=== PATIENT | male | born 1985 | race Two or more races ===

== ENCOUNTER 2024-07-04 14:04 | Inpatient (IN) | payer MEDICAID, OTHER ==
[~2024-07-04] VITALS: Ht 166.4 cm; Wt 56.6 kg
[2024-07-04 14:20] VITALS: RESP 19; O2SAT 100
--- NOTE | 2024-07-04 14:21 | ED.PDOC ---
History of Present Illness HPI Comments 38-year-old male brought by paramedics because he was having a psychotic episode. He lives in his car with a significant other. Significant other stated that he was having irrational behavior. He did have meth yesterday. Blood pressure on arrival was 88/62 with a heart rate of 134. Denies any symptoms. Unable to get a good history from the patient. History of bipolar disorder. Chief Complaint: Low Blood Pressure Time Seen by MD: 14:07 Reviewed Notes: Nurses Notes, Medications, Allergies Allergies: Coded Allergies: Naproxen (Verified Allergy, Unknown, 07/04/24) Information Source: Emergency Med Personnel Mode of Arrival: EMS Severity: Moderate Timing: Hours Duration: Since onset Past Medical History PAST MEDICAL HISTORY: Denies Surgical History: Denies all surgeries Social History Smoker: Cigarettes Alcohol: Denies ETOH Use Drugs: Methamphetamine Constitutional: denies: chills, diaphoresis, fatigue, fever, malaise, sweats, weakness, others EENTM: denies: blurred vision, double vision, ear bleeding, ear discharge, ear drainage, ear pain, ear ringing, eye pain, eye redness, hearing loss, mouth pain, mouth swelling, nasal discharge, nose bleeding, nose congestion, nose pain, photophobia, tearing, throat pain, throat swelling, voice changes, others Respiratory: denies: cough, hemoptysis, orthopnea, SOB at rest, shortness of breath, SOB with excertion, stridor, wheezing, others Cardiovascular: denies: chest pain, dizzy spells, diaphoresis, Dyspnea on exertion, edema, irregular heart beat, left arm pain, lightheadedness, palpitations, PND, syncope, others Gastrointestinal: denies: abdomen distended, abdominal pain, blood streaked bowels, constipated, diarrhea, dysphagia, difficulty swallowing, hematemesis, melena, nausea, poor appetite, poor fluid intake, rectal bleeding, rectal pain, vomiting, others Genitourinary: denies: burning, dysuria, flank pain, frequency, hematuria, incontinence, penile discharge, penile sore, pain, testicle pain, testicle swelling, urgency, others Neurological: denies: dizziness, fainting, headache, left sided numbness, left sided weakness, numbness, paresthesia, pre-existing deficit, right sided numbness, right sided weakness, seizure, speech problems, tingling, tremors, weakness, others Musculoskeletal: denies: back pain, gout, joint pain, joint swelling, muscle pain, muscle stiffness, neck pain, others Integumetry: denies: bruises, change in color, change in hair/nails, dryness, laceration, lesions, lumps, rash, wounds, others Allergic/Immunocompromised: denies: Difficulty Healing, Frequent Infections, Hives, Itching, others Hematologic/Lymphatic: denies: anemia, blood clots, easy bleeding, easy bruising, swollen glands, others Endocrine: denies: excessive hunger, excessive sweating, excessive thirst, excessive urination, flushing, intolerance to cold, intolerance to heat, unexplained weight gain, unexplained weight loss, others Psychiatric: reports: anxiety, bipolar disorder Physical Exam General Appearance: Moderate Distress HEENT: Normal ENT Inspection, Pharynx Normal, TMs Normal Neck: Full Range of Motion, Non-Tender, Normal, Normal Inspection Respiratory: Chest Non-Tender, Lungs Clear, No Accessory Muscle Use, No Respiratory Distress, Normal Breath Sounds Cardiovascular: No Edema, No JVD, No Murmur, No Gallop, Normal Peripheral Pulses, Tachycardia Breast Exam: Deferred Gastrointestinal: No Organomegaly, Non Tender, No Pulsatile Mass, Normal Bowel Sounds, Soft Genitalia: Deferred Pelvic: Deferred Rectal: Deferred Extremities: No calf tenderness, No pedal edema Musculoskeletal : Apperance: Normal Neurologic: Alert Cerebellar Function: NOT DONE Reflexes: NOT DONE Skin: Dry, Normal Color, Warm Peripheral Pulses: 3+ Radial (R), 3+ Radial (L) Lymphatic: No Adenopathy Was a procedure done? Was a procedure done?: No Differential Dx Considerations may include: Anemia Electrolyte imbalance X-Ray, Labs, Meds, VS Vital Signs Date Time Temp Pulse Resp B/P (MAP) Pulse Ox O2 Delivery O2 Flow Rate FiO2 07/04/24 16:00 101.9 120 14 94/43 (60) 100 101.9 07/04/24 14:35 102.3 127 17 93/45 (61) 100 102.3 07/04/24 14:30 102.3 127 17 102.3 07/04/24 14:20 19 100 Room Air* 0 21 07/04/24 14:11 100.6 134 18 89/45 (60) 99 100.6 Lab Test 07/04/24 14:35 Range/Units Troponin I High Sensitivity < 3 L </=54 ng/L Current Medications Medications (Trade) Dose Ordered Sig/Jacqui Route Start Time Stop Time Status Last Admin Sodium Chloride 1,000 ml @ 1,000 mls/hr Q1H ONCE IV 07/04/24 14:15 07/04/24 15:14 DC 07/04/24 14:44 Sodium Chloride 1,000 ml @ 150 mls/hr Q6H40M ONCE IV 07/04/24 14:15 07/04/24 20:54 07/04/24 15:43 Sodium Chloride 1,000 ml @ 1,000 mls/hr Q1H ONCE IV 07/04/24 16:15 07/04/24 17:14 DC 07/04/24 16:15 Patient alert. Does not answering questions at times. Very difficult to get history of the patient. Tachycardic. Hypotensive. Establish intravenous access. Was given fluids. Possible sepsis. Unknown about his eating habits. Uses drugs. 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 Psychiatric evaluation. Continue monitoring. Cardiac marker within normal limits. He does have fever. Possible pneumonitis. Was given Rocephin. Was given azithromycin. Time of 1ST Reevaluation: 14:18 Reevaluation 1ST: Unchanged Patient Education/Counseling: Diagnosis, Treatment, Prognosis, Need For Follow Up Family Education/Counseling: No Family Present Departure 1 Departure Time of Disposition: 14:20 Impression: Primary Impression: Metabolic encephalopathy Additional Impressions: Pneumonitis Sepsis Qualified Codes: A41.9 - Sepsis, unspecified organism Disposition: ADMITTED INPATIENT Admit to: Med Surg Condition: Guarded Critical Care Note Critical Care Time?: Yes (90 min-critical care time only) Critical care comment: Sepsis protocol. Stability Stability form required: No Heart Score Heart Score: Heart Score Response (Comments) Value History Slightly Suspicious 0 EKG Normal 0 Age <45 0 Risk Factors 1 or 2 risk factors 1 Troponin Normal limit 0 Total 1 HITESH CURIEL MD July 04, 2024 14:21
[2024-07-04] MEDS: SODIUM CHLORIDE 0.9% 1,000 ML IV ONE ×3 (14:44→16:15)
[2024-07-04 17:33] LABS: Basophils # (auto) 0 10 ^3/uL (0-0.2); White Blood Cell 8.1 10^3/uL (4.4-10.8)
[2024-07-04 17:34] LABS: Potassium 3.8 mmol/L (3.5-5.1); Sodium 138 mmol/L (136-145)
[2024-07-04 17:35] LABS: Anion Gap 14 (5-15); Basophils % (auto) 0.4 % (0.0-2.0); Calcium 8.7 mg/dL (8.7-10.4); Eosinophils # (auto) 0 10 ^3/uL (0-0.8); Eosinophils % (auto) 0.1 % (0.0-7.0); Hemoglobin 9.1 g/dL (13.5-17.5); Lymphocytes % (auto) 12.9 % (10.0-50.0); Mean Corpuscular Hemoglobin 29.6 pg (28.0-32.0); Mean Corpuscular Hgb Conc. 33.6 g/dL (32.0-36.0); Mean Corpuscular Volume 88.2 fL (80.0-100.0); Monocytes # (auto) 0.9 10 ^3/uL (0-1.3); Monocytes % (auto) 10.7 % (0.0-12.0); Neutrophils # (auto) 6.2 10 ^3/uL (1.6-8.6); Neutrophils % (auto) 75.9 % (37.0-80.0); Platelet Count (auto) 462 10^3/uL (140-450); Red Blood Cells 3.06 10^6/uL (4.5-5.90); Red Cell Distribution Width 15.6 % (11.8-14.3)
[2024-07-04 17:40] LABS: BUN/Creatinine Ratio 14.1 (10.0-20.0); Glucose 102 mg/dL (74-106)
[2024-07-04 17:45] LABS: Blood Urea Nitrogen 24 mg/dL (9-23); Carbon Dioxide 16 mmol/L (20-31); Chloride 108 mmol/L (98-107)
[2024-07-04] MEDS: cefTRIAXone 1GM/50ML D5W 50 ML IV ONE (17:48)
[2024-07-04] MEDS: AZITHROMYCIN 500MG/ 250ML 250 ML IV ONE (18:00)
[2024-07-04 18:56] LABS: Lactic Acid w/Reflex 2.6 mmol/L (0.4-2.0)
[2024-07-04 19:30] VITALS: PULSE 118; RESP 19; O2SAT 100
[2024-07-04] MEDS ORDERED: DOCUSATE SOD 100 MG CAP PO PRN (20:30)
[2024-07-04] MEDS ORDERED: ACETAMINOPHEN 325 MG TAB PO PRN (20:30)
[2024-07-04] MEDS ORDERED: HYDROcodone-ACET 5/325MG TAB PO PRN (20:30)
[2024-07-04] MEDS ORDERED: ONDANSETRON HCL 4 MG/2 ML VIAL IV PRN (20:30)
--- NOTE | 2024-07-04 20:52 | DVH ---
CT HEAD WITHOUT CONTRAST INDICATION: altered COMPARISON: None TECHNIQUE: CT of the head without intravenous contrast. RADIATION DOSE: CTDIvol: 52.69 mGy, DLP: 844.79 mGy*cm FINDINGS: There is no evidence of intracranial hemorrhage, infarct, extra-axial collection, mass effect, midli ne shift, herniation or hydrocephalus. The ventricles, sulci and cisterns are normal. The mack-white differentiation is intact. Considerable mucosal thickening with complete opacification of right maxillary sinus and to lesser ex tent left maxillary sinus, mucosal thickening in bilateral ethmoid sinuses and right frontal sinus, m inimal mucosal thickening in sphenoid sinuses. Mastoid air cells and middle ear cavities are clear. S oft tissues and osseous structures are unremarkable. IMPRESSION: No intracranial abnormality identified.
--- NOTE | 2024-07-04 20:54 | DVH ---
CHEST RADIOGRAPH Indication: sob Technique: Single frontal view of the chest was obtained COMPARISON: None FINDINGS: Lines and Tubes: None Lungs: Clear Pleura: No effusion. No pneumothorax. Cardiomediastinal contours: Unremarkable IMPRESSION: No definite abnormality demonstrated.
[2024-07-04] MEDS: SODIUM CHLORIDE 0.9% 1,000 ML IV SCH (21:00)
[2024-07-04] MEDS ORDERED: NITROGLYCERIN 0.4 MG SL TAB SL PRN (21:15)
[2024-07-04] MEDS ORDERED: MORPHINE SULFATE INJ 2 MG/ml SYRG IV PRN (21:15)
--- NOTE | 2024-07-04 21:15 | DVHHP2 ---
History of Present Illness Reason for Visit: Sepsis, unspecified organism History of Present Illness The patient is a 38-year-old male who denies past medical history presented to [facility] ED for evaluation of psychotic episode. Patient lives in the car with a significant other. His partner reports he was having irrational behavior. Patient was seen and evaluated in the ED, laboratory data shows WBC 8.1, hemoglobin 9.1, hematocrit 27.0, platelets 462, sodium 138, potassium 3.8, BUN 24, creatinine 1.70, glucose 102, lactic acid 2.6, troponin < 3, blood pressure 89/45 trending up to 94/43, heart rate 134 trending down to 112, temperature 102.3� F trending down to 98.3� F. the patient was started on IV antibiotic regimen Rocephin, please see medication orders section in the computer. On my assessment, patient denied chest pain, no headache, no dizziness, no diaphoresis, no shortness of breath, no nausea, no vomiting, no fever at this moment, no chills. Patient was admitted for further evaluation and medical management. Past Medical History Bipolar disorder Past Surgical History Denies all surgeries Family History Reviewed, noncontributory to the management of this case. Past Social History The patient lives at home, smokes cigarettes, denies alcohol use, uses methamphetamine. Review of Systems Constitutional: Yes: Fever, Weakness; No: Chills, Sweats, Malaise, Other Eyes: No: Pain, Vision change, Conjunctivae inflammation, Eyelid inflammation, Other, Redness ENT: No: Ear pain, Ear discharge, Nose pain, Nose discharge, Nose congestion, Mouth pain, Mouth swelling, Throat pain, Throat swelling, Other Respiratory: No: Cough, Dry, Shortness of breath, SOB with excertion, Wheezing, Hemoptysis, Pleuritic Pain, Sputum, Wheezing, Other Cardiovascular: No: Chest Pain, Palpitations, Orthopnea, Paroxysmal Noc. Dyspnea, Edema, Lt Headedness, Other Gastrointestinal: No: Nausea, Vomiting, Abdominal Pain, Diarrhea, Constipation, Melena, Hematochezia, Other Genitourinary: No Dysuria, No Frequency, No Incontinence, No Hematuria, No Retention, No Other Musculoskeletal: No: other, neck pain, shoulder pain, arm pain, back pain, hand pain, leg pain, foot pain Skin: No: Rash, Lesions, Jaundice, Bruising, Other Neurological: No: Weakness, Numbness, Incoordination, Change in speech, Confusion, Seizures, Other Allergies: Coded Allergies: Naproxen (Verified Allergy, Unknown, 07/04/24) Medications Current Medications Medications Dose Ordered Sig/Jacqui Route Start Time Stop Time Status Last Admin Dose Admin Ceftriaxone Sodium 50 ml @ 100 mls/hr DAILY@09 IV 07/05/24 09:00 Azithromycin 250 ml @ 125 mls/hr DAILY IV 07/05/24 10:00 Sodium Chloride 1,000 ml @ 120 mls/hr Q8H20M IV 07/04/24 20:30 07/04/24 21:00 120 MLS/HR Acetaminophen/ Hydrocodone Bitart 1 tab Q4HP PRN PO 07/04/24 20:30 Ondansetron HCl 4 mg Q4HP PRN IV 07/04/24 20:30 Docusate Sodium 100 mg BIDPRN PRN PO 07/04/24 20:30 Acetaminophen 650 mg Q6HP PRN PO 07/04/24 20:30 Nitroglycerin 0.4 mg Q5MINP PRN SL 07/04/24 21:15 UNV Morphine Sulfate 2 mg Q30M PRN IV 07/04/24 21:15 UNV Exam Vital Signs Vital Signs Date Time Temp Pulse Resp B/P (MAP) Pulse Ox O2 Delivery O2 Flow Rate FiO2 07/04/24 17:00 113 14 92/40 (57) 98 07/04/24 16:00 101.9 101.9 07/04/24 14:20 Room Air* 0 21 General Appearance: Alert, Oriented X3, Cooperative, No acute distress HEENT: Atraumatic, PERRLA, EOMI, Mucous membr. moist/pink Respiratory: Normal air movement Cardiovascular: Regular rate, Normal S1, Normal S2, No murmurs Abdominal: Normal bowel sounds, Soft, No tenderness, No hepatospenomegaly, No masses Extremities: No clubbing, No cyanosis, No edema, Normal pulses, No tenderness/swelling Skin: No rashes, No breakdown, No significant lesion Neuro: Normal speech, Normal tone, Sensation intact, Cranial nerves 3-12 NL, Reflexes 2+, Other (Generalized weakness) Psych/Mental Status: Mental status NL, Mood NL, Other (Anxiety, bipolar diso rder.) Labs/Xrays Labs Test 07/04/24 20:08 07/04/24 19:56 07/04/24 14:35 Range/Units POC Glucose 81 70-106 mg/dl Lactic Acid Level 2.5 *H 0.4-2.0 mmol/L White Blood Count 8.1 4.4-10.8 10^3/uL Red Blood Count 3.06 L 4.5-5.90 10^6/uL Hemoglobin 9.1 L 13.5-17.5 g/dL Hematocrit 27.0 L 41.0-53.0 % Mean Corpuscular Volume 88.2 80.0-100.0 fL Mean Corpuscular Hemoglobin 29.6 28.0-32.0 pg Mean Corpuscular Hemoglobin Concent 33.6 32.0-36.0 g/dL Red Cell Distribution Width 15.6 H 11.8-14.3 % Platelet Count 462 H 140-450 10^3/uL Mean Platelet Volume 7.7 6.9-10.8 fL Neutrophils (%) (Auto) 75.9 37.0-80.0 % Lymphocytes (%) (Auto) 12.9 10.0-50.0 % Monocytes (%) (Auto) 10.7 0.0-12.0 % Eosinophils (%) (Auto) 0.1 0.0-7.0 % Basophils (%) (Auto) 0.4 0.0-2.0 % Neutrophils # (Auto) 6.2 1.6-8.6 10 ^3/uL Lymphocytes # (Auto) 1.0 0.4-5.4 10 ^3/uL Monocytes # (Auto) 0.9 0-1.3 10 ^3/uL Eosinophils # (Auto) 0 0-0.8 10 ^3/uL Basophils # (Auto) 0 0-0.2 10 ^3/uL Nucleated Red Blood Cells 0.0 % Sodium Level 138 136-145 mmol/L Potassium Level 3.8 3.5-5.1 mmol/L Chloride Level 108 H 98-107 mmol/L Carbon Dioxide Level 16 L 20-31 mmol/L Anion Gap 14 5-15 Blood Urea Nitrogen 24 H 9-23 mg/dL Creatinine 1.70 H 0.700-1.30 mg/dL Glomerular Filtration Rate Calc 52 >90 mL/min BUN/Creatinine Ratio 14.1 10.0-20.0 Serum Glucose 102 74-106 mg/dL Calcium Level 8.7 8.7-10.4 mg/dL Troponin I High Sensitivity < 3 L </=54 ng/L PATIENT: SEAN JACK ACCT: [id number] UNIT: [id number] : 1985 LOC: ER ROOM / BED: / AGE / SEX: 38 / M ADM STATUS: REG ER SERVICE 1723 ORDERING PHYSICIAN: HITESH CURIEL MD PROCEDURE(s): ABPL - CT AB PEL WO CON-NO ORAL OR IV REASON: colitis ORDER NUMBER(s): [id number], ACCESSION NUMBER(s): [id number] Exam: CT CT AB PEL WO CON-NO ORAL OR IV History: colitis Comparison Study: None TECHNIQUE: Multidetector CT of the abdomen was performed from lung bases to pubic symphysis. Imaging was performed without IV contrast. Axial, coronal and sagittal multiplanar reformats were obtained from the axial data set by the technologist. Radiation Dose Information: CT Dose: CTDI volume is 5.31 mGy. Dose-length product is 291.7 mGy*cm FINDINGS: Evaluation of solid organs is limited due to lack of intravenous contrast use. Findings: Lung Bases: No acute or significant lung base finding. Normal heart size. No pleural or pericardial effusion. Liver: The liver is normal in size. No focal lesions. Gallbladder and Biliary Tree: Unremarkable Spleen: Unremarkable Pancreas: The pancreas is grossly normal in appearance. Adrenal Glands: Unremarkable Kidneys: 4 mm nonobstructing calculus left kidney. Bladder: Grossly unremarkable for degree of distention. Bowel: The stomach is grossly normal in appearance. Small bowel and colon are normal in caliber and distribution. Artifact from bowel motion.: Measures between 4 and 5 cm in diameter. The appendix is not visualized; however, no secondary findings of acute appendicitis identified. Ascites: Absent Lymphadenopathy: No mesenteric, retroperitoneal or periportal lymphadenopathy. Abdominal Wall and Mesentery: Unremarkable. Vasculature: The visualized abdominal aorta is normal in size and caliber. E valuation of abdominal and pelvic vessels is limited due to lack of intravenous contrast. Pelvic Organs: Unremarkable Musculoskeletal: No aggressive focal bony lesions, acute fractures or dislocation. Soft tissues: Unremarkable IMPRESSION: 1. No abnormally dilated small bowel. Colon is within normal limits and measures between 4 and 5 cm. 2. No abnormally dilated small bowel. 3. There is a nonobstructing 4-5 mm calculus in the lower pole of the left kidney. ORDERING PHYSICIAN: HITESH CURIEL MD PROCEDURE(s): CXRP - CHEST PORTABLE REASON: sob ORDER NUMBER(s): [id number], ACCESSION NUMBER(s): [id number] CHEST RADIOGRAPH Indication: sob Technique: Single frontal view of the chest was obtained COMPARISON: None FINDINGS: Lines and Tubes: None Lungs: Clear Pleura: No effusion. No pneumothorax. Cardiomediastinal contours: Unremarkable IMPRESSION: No definite abnormality demonstrated. ORDERING PHYSICIAN: HITESH CURIEL MD PROCEDURE(s): HWOCT - HEAD WITHOUT CONTRAST REASON: altered ORDER NUMBER(s): [id number], ACCESSION NUMBER(s): [id number] CT HEAD WITHOUT CONTRAST INDICATION: altered COMPARISON: None TECHNIQUE: CT of the head without intravenous contrast. RADIATION DOSE: CTDIvol: 52.69 mGy, DLP: 844.79 mGy*cm FINDINGS: There is no evidence of intracranial hemorrhage, infarct, extra-axial collection, mass effect, midline shift, herniation or hydrocephalus. The ventricles, sulci and cisterns are normal. The mack-white differentiation is intact. Considerable mucosal thickening with complete opacification of right maxillary sinus and to lesser extent left maxillary sinus, mucosal thickening in bilateral ethmoid sinuses and right frontal sinus, minimal mucosal thickening in sphenoid sinuses. Mastoid air cells and middle ear cavities are clear. Soft tissues and osseous structures are unremarkable. IMPRESSION: No intracranial abnormality identified. Assessment/Plan Assessment/Plan Metabolic encephalopathy Pneumonitis Acute renal injury Sepsis, unspecified organism Plan 1. Admit to telemetry unit 2. Breathing treatment 3. Pain control management 4. IV antibiotic management 5. Management of fluids and electrolytes 6. Consultation for nephrology 7. Diagnostic test chest x-ray 8. DVT prophylaxis-on SCDs 9. Repeat labs CBC, CMP in a.m. 10. Home medication reviewed and reconciled 11. Continue with current medical management 12. Treatment plan discussed with patient and RN. Patient verbalized understanding. Plan discussed with: Patient, Other (RN) My Orders Orders - APOLINAR SANZ DNP Procedure Category Date Status Time Ceftriaxone 1gm/50ml PHA 07/05/24 In Process D5w (Rocephin) 09:00 Azithromycin 500mg/ PHA 07/05/24 In Process 250ml (Zithromax 50 10:00 Allergies HANNAH 07/04/24 In Process 20:24 Code Status CODE 07/04/24 Transmitted 20:24 Sodium Chloride 0.9% PHA 07/04/24 In Process 20:30 Oxygen Per Hour RT 07/04/24 Transmitted 20:24 Hydrocodone-Acet PHA 07/04/24 In Process 5/325mg Tab ([place] 20:30 Ondansetron Hcl PHA 07/04/24 In Process (Zofran) 20:30 Docusate Sodium PHA 07/04/24 In Process Capsule (Colace 20:30 Fall Risk Precautions HANNAH 07/04/[address] 20:24 Complete Blood Count LAB 07/05/24 Verified 04:00 Comprehensive LAB 07/05/24 Verified Metabolic Panel 04:00 Cardiac DIET 07/05/24 Transmitted Diet-2gna,Lofat,Lochol Breakfast Condition: Serious HANNAH 07/04/24 In Process 20:24 Acetaminophen Tablet PHA 07/04/24 In Process (Tylenol Tablet) 20:30 Maintain Bed Rest HANNAH 07/04/24 In Process 20:24 Sequential HANNAH 07/04/24 In Process Compression Device * Cardiology Consult CONS 07/04/24 Transmitted 20:24 Admit ADMIT 07/04/24 Transmitted 21:13 Nitroglycerin PHA 07/04/24 Logged Sublingual (Ntrostat 21:15 Morphine Sulfate PHA 07/04/24 Logged Injection 21:15 Notify Of Changes HANNAH 07/04/24 In Process From Base 21:13 Project Program Manager For HANNAH 07/04/24 In Process 24 Hours 21:13 Emergency Dysrhythmia HANNAH 07/04/24 In Process Protocol 21:13 Rhythm Strips Once HANNAH 07/04/24 In Process Every Shift 21:13 Oxygen By Nasal RT 07/04/24 Transmitted Cannula 21:13 Problem List: (1) Metabolic encephalopathy (2) Pneumonitis (3) Acute renal injury (4) Sepsis, unspecified organism Date of Service: July 04, 2024 Billing Provider: APOLINAR SANZ DNP Common Visit Codes: 54388-IYRTSAE INP/OBS CARE (HIGH) APOLINAR SANZ DNP July 04, 2024 21:15
--- NOTE | 2024-07-04 21:27 | DVH ---
Exam: CT CT AB PEL WO CON-NO ORAL OR IV History: colitis Comparison Study: None TECHNIQUE: Multidetector CT of the abdomen was performed from lung bases to pubic symphysis. Imaging was performed without IV contrast. Axial, coronal and sagittal multiplanar reformats were obtained fr om the axial data set by the technologist. Radiation Dose Information: CT Dose: CTDI volume is 5.31 mGy. Dose-length product is 291.7 mGy*cm FINDINGS: Evaluation of solid organs is limited due to lack of intravenous contrast use. Findings: Lung Bases: No acute or significant lung base finding. Normal heart size. No pleural or pericardial effusion. Liver: The liver is normal in size. No focal lesions. Gallbladder and Biliary Tree: Unremarkable Spleen: Unremarkable Pancreas: The pancreas is grossly normal in appearance. Adrenal Glands: Unremarkable Kidneys: 4 mm nonobstructing calculus left kidney. Bladder: Grossly unremarkable for degree of distention. Bowel: The stomach is grossly normal in appearance. Small bowel and colon are normal in caliber and d istribution. Artifact from bowel motion.: Measures between 4 and 5 cm in diameter. The appendix is n ot visualized; however, no secondary findings of acute appendicitis identified. Ascites: Absent Lymphadenopathy: No mesenteric, retroperitoneal or periportal lymphadenopathy. Abdominal Wall and Mesentery: Unremarkable. Vasculature: The visualized abdominal aorta is normal in size and caliber. Evaluation of abdominal a nd pelvic vessels is limited due to lack of intravenous contrast. Pelvic Organs: Unremarkable Musculoskeletal: No aggressive focal bony lesions, acute fractures or dislocation. Soft tissues: Unremarkable IMPRESSION: 1. No abnormally dilated small bowel. Colon is within normal limits and measures between 4 and 5 cm. 2. No abnormally dilated small bowel. 3. There is a nonobstructing 4-5 mm calculus in the lower pole of the left kidney. 4. Radiation optimization: All CT scans at this facility use at least one of these dose optimization te chniques: automated exposure control mA and/or kV adjustment per patient size (includes targeted exa ms where dose is matched to clinical indication) or iterative reconstruction. HS:Y
[2024-07-05 01:16] LABS: Urine Bacteria FEW /hpf (None Seen); Urine Blood TRACE /uL (Negative); Urine Clarity Clear (Clear); Urine Color Light-Yellow (Yellow); Urine Mucus FEW (None Seen); Urine Protein, UAD TRACE (Negative); Urine Specific Gravity 1.015 (1.001-1.035); Urine Squamous Epithelial Cell None Seen /hpf (<5); Urine Urobilinogen Normal (Negative); Urine WBC 1 /HPF (0-3); Urine pH 5.5 (5.0-9.0)
[2024-07-05 01:59] LABS: Barbiturate Scree,Urine Neg (NEGATIVE); Opiate Scree,Urine Neg (NEGATIVE); Phencyclidine Screen, Urine Neg (NEGATIVE)
[2024-07-05 02:00] LABS: Amphetamine Screen, Urine Pos (NEGATIVE); Benzodiazephine Screen, Urine Neg (NEGATIVE); Cannabinoid Screen, Urine Neg (NEGATIVE); Cocaine Screen, Urine Neg (NEGATIVE)
[2024-07-05 03:51] LABS: Basophils # (auto) 0 10 ^3/uL (0-0.2); Eosinophils # (auto) 0 10 ^3/uL (0-0.8); Hematocrit 23.9 % (41.0-53.0); Monocytes # (auto) 1.1 10 ^3/uL (0-1.3); Neutrophils # (auto) 4.6 10 ^3/uL (1.6-8.6)
[2024-07-05 03:54] LABS: Basophils % (auto) 0.5 % (0.0-2.0); Eosinophils % (auto) 0.1 % (0.0-7.0); Lymphocytes # (auto) 1.7 10 ^3/uL (0.4-5.4); Lymphocytes % (auto) 22.8 % (10.0-50.0); Mean Corpuscular Hemoglobin 28.8 pg (28.0-32.0); Mean Corpuscular Hgb Conc. 33.6 g/dL (32.0-36.0); Mean Corpuscular Volume 85.8 fL (80.0-100.0); Monocytes % (auto) 15.1 % (0.0-12.0); Neutrophils % (auto) 61.5 % (37.0-80.0); Nucleated Red Blood Cells % 0.1 %; Platelet Count (auto) 399 10^3/uL (140-450); Red Blood Cells 2.78 10^6/uL (4.5-5.90); Red Cell Distribution Width 15.4 % (11.8-14.3); White Blood Cell 7.5 10^3/uL (4.4-10.8)
[2024-07-05 04:06] LABS: Alanine Aminotransferase 13 U/L (7-40); Albumin 2.9 g/dL (3.2-4.8); Alkaline Phosphatase 55 U/L (46-116); Anion Gap 10 (5-15); Aspartate Aminotransferase 20 U/L (13-40); BUN/Creatinine Ratio 15.5 (10.0-20.0); Bilirubin, Total 0.3 mg/dL (0.2-1.0); Blood Urea Nitrogen 18 mg/dL (9-23); Calcium 7.1 mg/dL (8.7-10.4); Carbon Dioxide 18 mmol/L (20-31); Chloride 112 mmol/L (98-107); Glucose 98 mg/dL (74-106); Potassium 3.1 mmol/L (3.5-5.1); Sodium 140 mmol/L (136-145); Total Protein 6.4 g/dL (5.7-8.2)
[2024-07-05] MEDS: POTASSIUM CHL 20 Meq TABLET PO ONE (04:57)
[2024-07-05 09:00] VITALS: PULSE 77; RESP 12; O2SAT 100
[2024-07-05] MEDS: cefTRIAXone 1GM/50ML D5W 50 ML IV SCH (09:40)
[2024-07-05] MEDS: AZITHROMYCIN 500MG/ 250ML 250 ML IV SCH (11:28)
[2024-07-05] MEDS: SOD CHL 0.9%/ KCL 40MEQ 1,000 ML IV ONE (12:06)
[2024-07-05] MEDS: MULTIPLE VITAMIN TAB PO ONE (12:10)
--- NOTE | 2024-07-05 12:40 | DVHPN2 ---
Subjective Patient denies any symptoms. Reviewed: Care Plan, H&P, Labs, Medications, Previous Orders Changes from previous H/P or p: No Changes General: Per HPI Eyes: No Pain, No Vision change, No Conjunctivae inflammation, No Eyelid inflammation, No Other, No Redness ENT: No Ear pain, No Ear discharge, No Nose pain, No Nose discharge, No Nose congestion, No Mouth pain, No Mouth swelling, No Throat pain, No Throat swelling, No Other Cardiovascular: No Chest Pain, No Palpitations, No Orthopnea, No Paroxysmal Noc. Dyspnea, No Edema, No Lt Headedness, No Other Respiratory: No Cough, No Dry, No Shortness of breath, No SOB with excertion, No Wheezing, No Hemoptysis, No Pleuritic Pain, No Sputum, No Other Gastrointestinal: No Nausea, No Vomiting, No Abdominal Pain, No Diarrhea, No Constipation, No Melena, No Hematochezia, No Other Genitourinary: No Dysuria, No Frequency, No Incontinence, No Hematuria, No Retention, No Other Musculoskeletal: No other, No neck pain, No shoulder pain, No arm pain, No back pain, No hand pain, No leg pain, No foot pain Skin: No Rash, No Lesions, No Jaundice, No Bruising, No Other Objective Vitals Vital Signs Date Time Temp Pulse Resp B/P (MAP) Pulse Ox O2 Delivery O2 Flow Rate FiO2 07/05/24 12:00 75 19 101/67 (78) 98 07/05/24 09:00 Room Air* 0 21 07/05/24 08:00 98.2 98.2 Intake/Output Intake and Output 07/05/24 07:00 Intake Total 4420 ml Output Total 300 ml Balance 4120 ml Intake IV Total 4420 ml Output Urine Total 300 ml General Appearance: Alert, Oriented X3, Cooperative, No acute distress HEENT: Atraumatic, PERRLA Cardiovascular: Normal S1, Normal S2 Musculoskeletal: Normal sensory function, Normal motor function Skin: Dry, Intact Psych/Mental Status: Mental status NL, Mood NL Medications Current Medications Medications Dose Ordered Sig/Jacqui Route Start Time Stop Time Status Last Admin Dose Admin Ceftriaxone Sodium 50 ml @ 100 mls/hr DAILY@09 IV 07/05/24 09:00 07/05/24 09:40 100 MLS/HR Azithromycin 250 ml @ 125 mls/hr DAILY IV 07/05/24 10:00 07/05/24 11:28 125 MLS/HR Acetaminophen/ Hydrocodone Bitart 1 tab Q4HP PRN PO 07/04/24 20:30 Ondansetron HCl 4 mg Q4HP PRN IV 07/04/24 20:30 Docusate Sodium 100 mg BIDPRN PRN PO 07/04/24 20:30 Acetaminophen 650 mg Q6HP PRN PO 07/04/24 20:30 Nitroglycerin 0.4 mg Q5MINP PRN SL 07/04/24 21:15 Morphine Sulfate 2 mg Q30M PRN IV 07/04/24 21:15 Multivitamins 1 tab DAILY PO 07/06/24 10:00 Laboratory Results Laboratory Tests 07/05/24 03:32 Chemistry Test 07/04/24 14:35 07/05/24 03:32 Calcium Level 8.7 mg/dL (8.7-10.4) 7.1 mg/dL (8.7-10.4) L Albumin 2.9 g/dL (3.2-4.8) L Total Protein 6.4 g/dL (5.7-8.2) LFT Test 07/05/24 03:32 Alanine Aminotransferase (ALT) 13 U/L (7-40) Alkaline Phosphatase 55 U/L (46-116) Aspartate Amino Transferase (AST) 20 U/L (13-40) Total Bilirubin 0.3 mg/dL (0.2-1.0) Urinalysis Test 07/05/24 00:58 Urine Color Light-yellow (Yellow) Urine Clarity Clear (Clear) Urine pH 5.5 (5.0-9.0) Urine Specific [place] 1.015 (1.001-1.035) Urine Protein Trace (Negative) H Urine Ketones Trace (Negative) Urine Blood Trace /uL (Negative) H Urine Nitrite Negative (Negative) Urine Bilirubin Negative (Negative) Urine Urobilinogen Normal mg/dL (Negative) Urine Leukocyte Esterase Negative /uL (Negative) Urine RBC None seen /hpf (0 - 3) Urine Microscopic WBC 1 /HPF (0-3) Urine Squamous Epithelial Cells None seen /hpf (<5) Urine Bacteria Few /hpf (None Seen) H Urine Mucus Few (None Seen) Urine Glucose Normal mg/dL (Normal) Labs and/or images reviewed: Labs reviewed by me, Image(s) reviewed by me Assessment/Plan Assessment/Plan Impression: -toxic metabolic encephalopathy -lactic acidosis -amphetamine abuse -sirs without organ dysfunction -hypokalemia Plan: -continue IV hydration -potassium replacement -monitor for withdrawal symptoms -start MVI, thiamine supplementation -repeat labs in a.m. Total time spent with patient discussing and formulating plan of care: 35 minutes. This medical document was created using an electronic medical record system with [employer] dictation system. Although this document has been carefully reviewed, there may still be some phonetic and typographical errors. These areas are purely typographical due to imperfections of the software programs, and do not reflect any compromise in the patient's medical care. Plan discussed with: Patient, Other (rn) My Orders Orders - CLAIRE VALENTINE NP Procedure Category Date Status Time Multiple Vitamin PHA 07/06/24 In Process Tablet (Mvi Tab) 10:00 Sod Chl 0.9%/ Kcl PHA 07/05/24 In Process 40meq 12:00 Date of Service: July 05, 2024 Billing Provider: CLAIRE VALENTINE NP Common Visit Codes: [id number] INP/OBS CARE(HIGH) CLAIRE VALENTINE NP July 05, 2024 12:40
[2024-07-05 19:30] VITALS: PULSE 72; O2SAT 96
[2024-07-06 00:03] VITALS: PULSE 69; RESP 16; O2SAT 98
[2024-07-06 01:00] VITALS: BP 103/74; PULSE 69; RESP 16; TEMP 97.8; O2SAT 98
[2024-07-06 05:00] VITALS: BP 107/70; PULSE 71; RESP 18; TEMP 97.7; O2SAT 98
[2024-07-06 06:52] LABS: Anion Gap 7 (5-15); Carbon Dioxide 22 mmol/L (20-31); Potassium 3.8 mmol/L (3.5-5.1); Sodium 142 mmol/L (136-145)
[2024-07-06 06:58] LABS: BUN/Creatinine Ratio 13.3 (10.0-20.0); Blood Urea Nitrogen 12 mg/dL (9-23); Glucose 87 mg/dL (74-106)
[2024-07-06 06:59] LABS: Magnesium 2.1 mg/dL (1.6-2.6)
[2024-07-06 07:05] LABS: Calcium 7.8 mg/dL (8.7-10.4); Chloride 113 mmol/L (98-107)
[2024-07-06 08:00] VITALS: PULSE 74; RESP 16; O2SAT 96
[2024-07-06 09:00] VITALS: BP 99/59; PULSE 62; RESP 16; TEMP 97.7; O2SAT 97
[2024-07-06] MEDS: MULTIPLE VITAMIN TAB PO SCH (09:01)
--- NOTE | 2024-07-06 13:26 | DVHDS2 ---
Discharge Summary Date of Admission July 04, 2024 at 21:13 Date of Discharge: July 06, 2024 Admitting Diagnosis Metabolic encephalopathy Labs/Diagnostic Data: Laboratory Results Test 07/06/24 05:33 07/05/24 03:32 07/05/24 00:58 07/04/24 20:08 Sodium Level 142 mmol/L (136-145) Potassium Level 3.8 mmol/L (3.5-5.1) Chloride Level 113 mmol/L (98-107) Carbon Dioxide Level 22 mmol/L (20-31) Anion Gap 7 (5-15) Blood Urea Nitrogen 12 mg/dL (9-23) Creatinine 0.90 mg/dL (0.700-1.30) Glomerular Filtration Rate Calc 111 mL/min (>90) BUN/Creatinine Ratio 13.3 (10.0-20.0) Serum Glucose 87 mg/dL (74-106) Calcium Level 7.8 mg/dL (8.7-10.4) Magnesium Level 2.1 mg/dL (1.6-2.6) White Blood Count 7.5 10^3/uL (4.4-10.8) Red Blood Count 2.78 10^6/uL (4.5-5.90) Hemoglobin 8.0 g/dL (13.5-17.5) Hematocrit 23.9 % (41.0-53.0) Mean Corpuscular Volume 85.8 fL (80.0-100.0) Mean Corpuscular Hemoglobin 28.8 pg (28.0-32.0) Mean Corpuscular Hemoglobin Concent 33.6 g/dL (32.0-36.0) Red Cell Distribution Width 15.4 % (11.8-14.3) Platelet Count 399 10^3/uL (140-450) Mean Platelet Volume 7.2 fL (6.9-10.8) Neutrophils (%) (Auto) 61.5 % (37.0-80.0) Lymphocytes (%) (Auto) 22.8 % (10.0-50.0) Monocytes (%) (Auto) 15.1 % (0.0-12.0) Eosinophils (%) (Auto) 0.1 % (0.0-7.0) Basophils (%) (Auto) 0.5 % (0.0-2.0) Neutrophils # (Auto) 4.6 10 ^3/uL (1.6-8.6) Lymphocytes # (Auto) 1.7 10 ^3/uL (0.4-5.4) Monocytes # (Auto) 1.1 10 ^3/uL (0-1.3) Eosinophils # (Auto) 0 10 ^3/uL (0-0.8) Basophils # (Auto) 0 10 ^3/uL (0-0.2) Nucleated Red Blood Cells 0.1 % Total Bilirubin 0.3 mg/dL (0.2-1.0) Aspartate Amino Transferase (AST) 20 U/L (13-40) Alanine Aminotransferase (ALT) 13 U/L (7-40) Alkaline Phosphatase 55 U/L (46-116) Total Protein 6.4 g/dL (5.7-8.2) Albumin 2.9 g/dL (3.2-4.8) Urine Color Light-yellow (Yellow) Urine Clarity Clear (Clear) Urine pH 5.5 (5.0-9.0) Urine Specific [place] 1.015 (1.001-1.035) Urine Protein Trace (Negative) Urine Ketones Trace (Negative) Urine Blood Trace /uL (Negative) Urine Nitrite Negative (Negative) Urine Bilirubin Negative (Negative) Urine Urobilinogen Normal mg/dL (Negative) Urine Leukocyte Esterase Negative /uL (Negative) Urine RBC None seen /hpf (0 - 3) Urine Microscopic WBC 1 /HPF (0-3) Urine Squamous Epithelial Cells None seen /hpf (<5) Urine Bacteria Few /hpf (None Seen) Urine Mucus Few (None Seen) Urine Glucose Normal mg/dL (Normal) Urine Opiates Screen Neg (NEGATIVE) Urine Fentanyl Screen Neg (NEGATIVE) Urine Barbiturates Screen Neg (NEGATIVE) Urine Phencyclidine Screen Neg (NEGATIVE) Urine Amphetamines Screen Pos (NEGATIVE) Urine Benzodiazepines Screen Neg (NEGATIVE) Urine Cocaine Screen Neg (NEGATIVE) Urine Cannabinoids Screen Neg (NEGATIVE) POC Glucose 81 mg/dl (70-106) Test 07/04/24 19:56 07/04/24 14:35 Lactic Acid Level 2.5 mmol/L (0.4-2.0) Troponin I High Sensitivity < 3 ng/L (</=54) Other Laboratory Tests 07/06/24 05:33 07/05/24 03:32 Brief Hx & Hospital Course: History of Present Illness The patient is a 38-year-old male who denies past medical history presented to [facility] ED for evaluation of psychotic episode. Patient lives in the car with a significant other. His partner reports he was having irrational behavior. Patient was seen and evaluated in the ED, laboratory data shows WBC 8.1, hemoglobin 9.1, hematocrit 27.0, platelets 462, sodium 138, potassium 3.8, BUN 24, creatinine 1.70, glucose 102, lactic acid 2.6, troponin < 3, blood pressure 89/45 trending up to 94/43, heart rate 134 trending down to 112, temperature 102.3� F trending down to 98.3� F. the patient was started on IV antibiotic regimen Rocephin, please see medication orders section in the computer. On my assessment, patient denied chest pain, no headache, no dizziness, no diaphoresis, no shortness of breath, no nausea, no vomiting, no fever at this moment, no chills. Patient was admitted for further evaluation and medical management. Course of hospitalization: Patient's mentation improved with IV hydration. Patient was started on antibiotic therapy with negative blood cultures. Lifestyle modification education urine in the patient regarding the use of illicit drugs. Patient states that the pain and his partner will abstain from using drugs at this time. Patient will follow up with the discharge clinic in one week. Physical exam General: Alert and Oriented x3. No acute distress. Well-nourished. Eyes: EOMI. Anicteric. HENT: Moist mucous membranes. Lungs: Clear to auscultation bilaterally. No accessory muscle use. Cardiovascular: Regular rate and rhythm. No murmur. No JVD. Abdomen: Soft, non-tender and non-distended. No palpable masses. Extremities: No edema. Non-tender. Skin: No rashes or lesions. Warm. Neurologic: No focal neurological deficits. CN II-XII grossly intact, but not individually tested. Psychiatric: Cooperative. Appropriate mood and affect. Total time spent with patient discussing and formulating plan of care: 35 minutes. This medical document was created using an electronic medical record system with [employer] system. Although this document has been carefully reviewed, there may still be some phonetic and typographical errors. These areas are purely typographical due to imperfections of the software programs, and do not reflect any compromise in the patient's medical care. Condition at Discharge: Poor Final Diagnosis/Problems List Toxic metabolic encephalopathy Secondary diagnosis: -toxic metabolic encephalopathy -lactic acidosis -amphetamine abuse -sirs without organ dysfunction -hypokalemia Discharge Disposition: Home Discharge Instruct/Medications Diet: Regular Activity: No Restrictions, As Tolerated Follow Up/Referral: Discharge clinic in one-week 36 Discharge Statement: "Patient was advised to return to the ER or call 911 if any headaches, dizziness, shortness of breath, chest pain, abdominal pain, bleeding, fevers, or worsening of medical condition. Patient was counseled about treatment plan, medications, possible side effects, patient�verbalized understanding. All questions were answered to the best of my ability. This discharge took greater then 30 minutes in planning, reviewing documentation, counseling the patient, and discussing with other team members." ASSESSMENT ASSESSMENT Assessment Toxic metabolic encephalopathy Date of Service: July 06, 2024 Billing Provider: CLAIRE VALENTINE NP Common Visit Codes: 96308-NBU/OBS DISCH DAY >30min CLAIRE VALENTINE NP July 06, 2024 13:26
[2024-07-06 13:28] VITALS: BP 105/75; PULSE 76; RESP 16; TEMP 97.8; O2SAT 98
== END 2024-07-06 13:52 | disposition home or self-care (01) | DRG 52 ==
LOC: EDBD 14:04 → ER 14:04 → OVERFLOW 21:13 → TELE-CENTR 21:20
PROVIDERS: ADMIT Nurse Practitioner Acute Care; ATTEND Nurse Practitioner Acute Care
DX: G92.8 Other toxic encephalopathy (principal); N17.0 Acute kidney failure with tubular necrosis; E87.20 Acidosis, unspecified; E44.1 Mild protein-calorie malnutrition; R65.10 Systemic inflammatory response syndrome (SIRS) of non-infectious origin without acute organ dysfunction; J98.4 Other disorders of lung; E87.6 Hypokalemia; F31.9 Bipolar disorder, unspecified; F41.9 Anxiety disorder, unspecified; F17.210 Nicotine dependence, cigarettes, uncomplicated; F15.10 Other stimulant abuse, uncomplicated; Z88.3 Allergy status to other anti-infective agents; Z79.899 Other long term (current) drug therapy; Z59.02 Unsheltered homelessness; Z68.20 Body mass index [BMI] 20.0-20.9, adult
CPT/HCPCS: 36415; 70450; 71045; 74176; 80048; 80053; 80307; 81001; 82962; 83605; 83735; 84484; 85025; 87040; 96361; 96365; 99291; G0378

== ENCOUNTER 2024-11-11 17:49 | Emergency (ER) | payer MEDICAID ==
[~2024-11-11] VITALS: Ht 167.6 cm; Wt 63.6 kg
[2024-11-11 18:52] LABS: Hemoglobin 8.8 g/dL (13.5-17.5); Nucleated Red Blood Cells % 0.0 %
[2024-11-11 18:54] LABS: Hematocrit 26.6 % (41.0-53.0); Mean Corpuscular Hemoglobin 28.0 pg (28.0-32.0); Mean Corpuscular Volume 84.9 fL (80.0-100.0)
[2024-11-11 19:03] LABS: Alanine Aminotransferase 14 U/L (7-40); Albumin 3.6 g/dL (3.2-4.8); Alkaline Phosphatase 75 U/L (46-116); Anion Gap 8 (5-15); BUN/Creatinine Ratio 8.9 (10.0-20.0); Blood Urea Nitrogen 10 mg/dL (9-23); Carbon Dioxide 25 mmol/L (20-31); Chloride 104 mmol/L (98-107); Glucose 99 mg/dL (74-106); Potassium 4.0 mmol/L (3.5-5.1); Sodium 137 mmol/L (136-145)
[2024-11-11 19:04] LABS: Bilirubin, Total 0.2 mg/dL (0.2-1.0); Calcium 8.4 mg/dL (8.7-10.4); Total Protein 8.4 g/dL (5.7-8.2)
--- NOTE | 2024-11-11 19:43 | DVH ---
Exam: CT CT AB PEL WO CON-NO ORAL OR IV History: ab. pain Comparison Study: CT CT AB PEL WO CON-NO ORAL OR IV on DOS: 07/04/24 TECHNIQUE: Multidetector CT of the abdomen and pelvis was performed from lung bases to pubic symphysi s. Imaging was performed without IV contrast. Axial, coronal, and sagittal multiplanar reformats were obtained from the axial data set by the technologist. RADIATION DOSE: DLP 264.79 mGy.cm; CTDI vol 5.07 mGy. Findings: Lungs: The lung bases are clear. Heart: No cardiomegaly or pericardial effusion. Liver: Unremarkable. Gallbladder: Unremarkable. Spleen: Unremarkable Pancreas: Unremarkable Adrenals: Unremarkable Kidneys: Nonobstructive left nephrolithiasis. GI tract: Unremarkable : Unremarkable. Vasculature: Unremarkable Lymphadenopathy: Absent Peritoneum: No ascites Musculoskeletal: Unremarkable Soft tissues: Small fat containing periumbilical hernia. Unremarkable Impression: 1. No acute abdominopelvic abnormalities. 2. Nonobstructive left nephrolithiasis.
[2024-11-11 20:12] VITALS: BP 117/82; PULSE 102; RESP 17; TEMP 98.4; O2SAT 100
[2024-11-11] MEDS: KETOROLAC TROMETH 30 MG/ML 1ML VIAL IV ONE (20:24)
[2024-11-11] MEDS: ACETAMINOPHEN 325 MG TAB PO ONE (20:24)
[2024-11-11] MEDS: SODIUM CHLORIDE 0.9% 1,000 ML IV ONE (20:25)
--- NOTE | 2024-11-11 20:38 | ED.PDOC ---
GI ASSESSMENT HPI Comments This is a 39-year-old male with past medical history of right inguinal hernia came to the hospital due to abdominal pain since 1 week. Pain is localized at right lower quadrant, radiating to all over abdomen, 4/10 in intensity, pressure-like in nature, which worsened with taking food. Per patient, the pain has worsened since yesterday. He also reports of diarrhea and decreased oral intake. He denies fever, chest pain, shortness of breath, nausea, vomiting, or any bladder habit changes. Chief Complaint: Abdominal Pain Time Seen by MD: 17:59 Allergies: Coded Allergies: Naproxen (Verified Allergy, Unknown, 07/04/24) Pineapple (Verified Allergy, Unknown, 07/05/24) [place] (Verified Adverse Reaction, Severe, 07/05/24) Uncoded Allergies: EGG (Adverse Reaction, Severe, STOMACH UPSET, 07/05/24) MILK (Adverse Reaction, Unknown, 07/05/24) Home Meds No Active Prescriptions or Reported Meds Mode of Arrival: EMS Past Medical History PAST MEDICAL HISTORY: Denies Surgical History: Denies all surgeries Surgical History (Other): Right inguinal hernia Social History Smoker: Cigarettes Alcohol: Denies ETOH Use Drugs: Methamphetamine Constitutional: denies: chills, diaphoresis, fatigue, fever, malaise, sweats, weakness, others EENTM: denies: blurred vision, double vision, ear bleeding, ear discharge, ear drainage, ear pain, ear ringing, eye pain, eye redness, hearing loss, mouth pain, mouth swelling, nasal discharge, nose bleeding, nose congestion, nose pain, photophobia, tearing, throat pain, throat swelling, voice changes, others Respiratory: denies: cough, hemoptysis, orthopnea, SOB at rest, shortness of breath, SOB with excertion, stridor, wheezing, others Cardiovascular: denies: chest pain, dizzy spells, diaphoresis, Dyspnea on exertion, edema, irregular heart beat, left arm pain, lightheadedness, palpitations, PND, syncope, others Gastrointestinal: reports: abdominal pain, diarrhea; denies: abdomen distended, blood streaked bowels, constipated, dysphagia, difficulty swallowing, hematemesis, melena, nausea, poor appetite, poor fluid intake, rectal bleeding, rectal pain, vomiting, others Genitourinary: denies: burning, dysuria, flank pain, frequency, hematuria, incontinence, penile discharge, penile sore, pain, testicle pain, testicle swelling, urgency, others Neurological: denies: dizziness, fainting, headache, left sided numbness, left sided weakness, numbness, paresthesia, pre-existing deficit, right sided numbness, right sided weakness, seizure, speech problems, tingling, tremors, weakness, others Musculoskeletal: denies: back pain, gout, joint pain, joint swelling, muscle pain, muscle stiffness, neck pain, others Integumetry: denies: bruises, change in color, change in hair/nails, dryness, laceration, lesions, lumps, rash, wounds, others Allergic/Immunocompromised: denies: Difficulty Healing, Frequent Infections, Hives, Itching, others Hematologic/Lymphatic: denies: anemia, blood clots, easy bleeding, easy bruising, swollen glands, others Endocrine: denies: excessive hunger, excessive sweating, excessive thirst, excessive urination, flushing, intolerance to cold, intolerance to heat, unexplained weight gain, unexplained weight loss, others Psychiatric: denies: anxiety, bipolar disorder, depression, hopeless, panic disorder, schizophrenia, sleepless, suicidal, others Physical Exam General Appearance: No Apparent Distress, Normal HEENT: Normal ENT Inspection, Pharynx Normal, TMs Normal Neck: Full Range of Motion, Non-Tender, Normal, Normal Inspection Respiratory: Chest Non-Tender, Lungs Clear, No Accessory Muscle Use, No Respiratory Distress, Normal Breath Sounds Cardiovascular: No Edema, No JVD, No Murmur, No Gallop, Normal Peripheral Pulses, Regular Rate/Rhythm Breast Exam: Deferred Gastrointestinal: No Organomegaly, No Pulsatile Mass, Normal Bowel Sounds, Soft, Tenderness Genitalia: Deferred Pelvic: Deferred Rectal: Deferred Extremities: No calf tenderness, Normal capillary refill, Normal inspection, Normal range of motion, Non-tender, No pedal edema Musculoskeletal : Apperance: Normal Neurologic: Alert, alley cleaner II-XII nml as Tested, No Motor Deficits, Normal Affect, Normal Mood, No Sensory Deficits Cerebellar Function: Normal Reflexes: Normal Skin: Dry, Normal Color, Warm Lymphatic: No Adenopathy Was a procedure done? Was a procedure done?: No GI differential Dx Differential Diagnosis: Other X-Ray, Labs, Meds, VS Vital Signs Date Time Temp Pulse Resp B/P (MAP) Pulse Ox O2 Delivery O2 Flow Rate FiO2 11/11/24 20:12 98.4 102 17 117/82 (94) 100 98.4 11/11/24 17:50 99.4 111 16 123/82 97 99.4 Lab Test 11/11/24 20:20 11/11/24 18:30 Range/Units Urine Color Light-yellow Yellow Urine Clarity Clear Clear Urine pH 6.0 5.0-9.0 Urine Specific [place] 1.025 1.001-1.035 Urine Protein Trace H Negative Urine Ketones Negative Negative Urine Blood Negative Negative /uL Urine Nitrite Negative Negative Urine Bilirubin Negative Negative Urine Urobilinogen Normal Negative mg/dL Urine Leukocyte Esterase Negative Negative /uL Urine RBC 1 0 - 3 /hpf Urine Microscopic WBC 5 H 0-3 /HPF Urine Squamous Epithelial Cells Few <5 /hpf Urine Bacteria None seen None Seen /hpf Urine Mucus Few None Seen Urine Glucose Normal Normal mg/dL White Blood Count 6.3 4.4-10.8 10^3/uL Red Blood Count 3.13 L 4.5-5.90 10^6/uL Hemoglobin 8.8 L 13.5-17.5 g/dL Hematocrit 26.6 L 41.0-53.0 % Mean Corpuscular Volume 84.9 80.0-100.0 fL Mean Corpuscular Hemoglobin 28.0 28.0-32.0 pg Mean Corpuscular Hemoglobin Concent 33.0 32.0-36.0 g/dL Red Cell Distribution Width 18.2 H 11.8-14.3 % Platelet Count 513 H 140-450 10^3/uL Mean Platelet Volume 7.3 6.9-10.8 fL Neutrophils (%) (Auto) 71.2 37.0-80.0 % Lymphocytes (%) (Auto) 14.0 10.0-50.0 % Monocytes (%) (Auto) 13.2 H 0.0-12.0 % Eosinophils (%) (Auto) 1.2 0.0-7.0 % Basophils (%) (Auto) 0.4 0.0-2.0 % Neutrophils # (Auto) 4.5 1.6-8.6 10 ^3/uL Lymphocytes # (Auto) 0.9 0.4-5.4 10 ^3/uL Monocytes # (Auto) 0.8 0-1.3 10 ^3/uL Eosinophils # (Auto) 0.1 0-0.8 10 ^3/uL Basophils # (Auto) 0 0-0.2 10 ^3/uL Nucleated Red Blood Cells 0.0 % Sodium Level 137 136-145 mmol/L Potassium Level 4.0 3.5-5.1 mmol/L Chloride Level 104 98-107 mmol/L Carbon Dioxide Level 25 20-31 mmol/L Anion Gap 8 5-15 Blood Urea Nitrogen 10 9-23 mg/dL Creatinine 1.12 0.700-1.30 mg/dL Glomerular Filtration Rate Calc 85 >90 mL/min BUN/Creatinine Ratio 8.9 L 10.0-20.0 Serum Glucose 99 74-106 mg/dL Calcium Level 8.4 L 8.7-10.4 mg/dL Total Bilirubin 0.2 0.2-1.0 mg/dL Aspartate Amino Transferase (AST) 20 13-40 U/L Alanine Aminotransferase (ALT) 14 7-40 U/L Alkaline Phosphatase 75 46-116 U/L Total Protein 8.4 H 5.7-8.2 g/dL Albumin 3.6 3.2-4.8 g/dL Current Medications Medications (Trade) Dose Ordered Sig/Jacqui Route Start Time Stop Time Status Last Admin Sodium Chloride 1,000 ml @ 1,000 mls/hr Q1H ONCE IV 11/11/24 18:15 11/11/24 19:14 DC 11/11/24 20:25 Acetaminophen (Tylenol Tablet) 650 mg ONCE ONCE PO 11/11/24 18:15 11/11/24 18:18 DC 11/11/24 20:24 Ketorolac Tromethamine (Toradol Injection) 30 mg ONCE ONCE IV 11/11/24 18:15 11/11/24 18:18 DC 11/11/24 20:24 Time of 1ST Reevaluation: 20:37 Reevaluation 1ST: Improved Patient Education/Counseling: Diagnosis, Treatment, Prognosis, Need For Follow Up Family Education/Counseling: No Family Present Comments Patient came to the hospital due to abdominal pain and diarrhea. Patient was vitally stable. Abdominopelvic CT scan performed, showed normal finding. CBC showed anemia CMP normal Patient was given IV fluid and acetaminophen and ibuprofen. At subsequent checkup, patient was feeling better. Patient was recommended to follow up with PCP on outpatient basis. And will hydration Discharged home. SEPSIS Sepsis Screen Date sepsis recognized/suspect: Nov 11, 2024 Time Sepsis recognized/suspect: 1751 Recent Procedure: No On Antibiotic Therapy: No Respiratory Rate >20: No Heart Rate >90: Yes Temp<36 C (96.8 F) or >38.3 C: No SBP <90 or MAP <65 mmHG: No New Acute Mental Status Change: No Is the patient on CPAP, BIPAP,: No Physician Orders Ct Ab Pel Wo Con-No Oral Or Iv (11/11/24 18:15) Vital Signs Date Time Temp Pulse Resp B/P (MAP) Pulse Ox O2 Delivery O2 Flow Rate FiO2 11/11/24 20:12 98.4 102 17 117/82 (94) 100 98.4 11/11/24 17:50 99.4 111 16 123/82 97 99.4 Laboratory Tests Test 11/11/24 18:30 White Blood Count 6.3 10^3/uL (4.4-10.8) Medications Medications Dose Ordered Sig/Jacqui Route Start Time Stop Time Status Last Admin Dose Admin Acetaminophen 650 mg ONCE ONCE PO 11/11/24 18:15 11/11/24 18:18 DC 11/11/24 20:24 Ketorolac Tromethamine 30 mg ONCE ONCE IV 11/11/24 18:15 11/11/24 18:18 DC 11/11/24 20:24 Sodium Chloride 1,000 ml @ 1,000 mls/hr Q1H ONCE IV 11/11/24 18:15 11/11/24 19:14 DC 11/11/24 20:25 Departure 1 Departure Time of Disposition: 20:38 Impression: Primary Impression: Gastroenteritis Disposition: 01 HOME / SELF CARE / HOMELESS Condition: Fair e-Prescriptions No Active Prescriptions or Reported Meds Comments Attestation: I saw and evaluated the patient. I agree with the findings and plan of care as documented by the resident note. STELLA OGNSALVES MD Critical Care Note Critical Care Time?: No Stability Stability form required: No Heart Score Heart Score: Heart Score Response (Comments) Value History N/A 0 EKG N/A 0 Age N/A 0 Risk Factors N/A 0 Troponin N/A 0 Total 0 COLBY DAMIAN RESDIENT Nov 11, 2024 20:38 STELLA GONSALVES MD Nov 12, 2024 04:03
[2024-11-11 21:13] LABS: Urine Protein, UAD TRACE (Negative)
== END 2024-11-11 21:35 | disposition home or self-care (01) ==
LOC: EDBD 17:49 → ER 17:56
DX: K52.9 Noninfective gastroenteritis and colitis, unspecified (principal); F17.210 Nicotine dependence, cigarettes, uncomplicated; F19.90 Other psychoactive substance use, unspecified, uncomplicated; Z91.011 Allergy to milk products; Z88.6 Allergy status to analgesic agent
CPT/HCPCS: 36415; 74176; 80053; 81001; 85025; 96361; 96374; 99285; J1885; J7030

== ENCOUNTER 2024-12-09 16:57 | Emergency (ER) | payer MEDICAID ==
[~2024-12-09] VITALS: Ht 165.1 cm; Wt 45.5 kg
[2024-12-09] MEDS ORDERED: SODIUM CHLORIDE 0.9% 1,850 ML IV ONE (17:15)
[2024-12-09] MEDS ORDERED: SODIUM CHLORIDE 0.9% 500 ML IVB ONE (17:15)
--- NOTE | 2024-12-09 17:24 | ED.PDOC ---
History of Present Illness HPI Comments This is a 39 year old male LALY presenting to the ED with chief complaint of abdominal pain. Patient reports that he has been experiencing bilateral leg pain and associated abdominal pain for the past 2 years, worsening over time till now. Patient relays that he also has associated generalized weakness, SOB, fever of 102.5F, and recent weight loss. Patient states that he was seen 2 weeks ago by his PCP, but no studies had been ordered. Patient denies any N/V/D, chest pain, dizziness, headache, numbness, or syncope. Chief Complaint: General Weakness Time Seen by MD: 17:21 Reviewed Notes: Nurses Notes, Loan Supervisor Notes, Medications, Allergies Allergies: Coded Allergies: Naproxen (Verified Allergy, Unknown, 07/04/24) Pineapple (Verified Allergy, Unknown, 07/05/24) Hoven (Verified Adverse Reaction, Severe, 07/05/24) Uncoded Allergies: EGG (Adverse Reaction, Severe, STOMACH UPSET, 07/05/24) MILK (Adverse Reaction, Unknown, 07/05/24) Home Meds No Active Prescriptions or Reported Meds Information Source: Patient, Emergency Med Personnel Mode of Arrival: EMS Severity: Moderate Timing: Months Duration: Since onset Prehospital treatment: None Past Medical History PAST MEDICAL HISTORY: Anemia, Schizophrenia Past Medical History (Other): Gastric ulcer Surgical History: Denies all surgeries Family History Family History: Reviewed,noncontributory to illness Social History Smoker: Cigarettes Alcohol: Denies ETOH Use Drugs: Methamphetamine Lives In: Home Constitutional: reports: fever, weakness; denies: chills, diaphoresis, fatigue, malaise, sweats, others EENTM: denies: blurred vision, double vision, ear bleeding, ear discharge, ear drainage, ear pain, ear ringing, eye pain, eye redness, hearing loss, mouth pain, mouth swelling, nasal discharge, nose bleeding, nose congestion, nose pain, photophobia, tearing, throat pain, throat swelling, voice changes, others Respiratory: reports: shortness of breath; denies: cough, hemoptysis, orthopnea, SOB at rest, SOB with excertion, stridor, wheezing, others Cardiovascular: denies: chest pain, dizzy spells, diaphoresis, Dyspnea on exertion, edema, irregular heart beat, left arm pain, lightheadedness, palpitations, PND, syncope, others Gastrointestinal: reports: abdominal pain, diarrhea; denies: abdomen distended, blood streaked bowels, constipated, dysphagia, difficulty swallowing, hematemesis, melena, nausea, poor appetite, poor fluid intake, rectal bleeding, rectal pain, vomiting, others Genitourinary: denies: burning, dysuria, flank pain, frequency, hematuria, incontinence, penile discharge, penile sore, pain, testicle pain, testicle swelling, urgency, others Neurological: denies: dizziness, fainting, headache, left sided numbness, left sided weakness, numbness, paresthesia, pre-existing deficit, right sided numbness, right sided weakness, seizure, speech problems, tingling, tremors, weakness, others Musculoskeletal: reports: others (Bilateral leg pain); denies: back pain, gout, joint pain, joint swelling, muscle pain, muscle stiffness, neck pain Integumetry: denies: bruises, change in color, change in hair/nails, dryness, laceration, lesions, lumps, rash, wounds, others Allergic/Immunocompromised: denies: Difficulty Healing, Frequent Infections, Hives, Itching, others Hematologic/Lymphatic: denies: anemia, blood clots, easy bleeding, easy bruising, swollen glands, others Endocrine: denies: excessive hunger, excessive sweating, excessive thirst, excessive urination, flushing, intolerance to cold, intolerance to heat, unexplained weight gain, unexplained weight loss, others Psychiatric: denies: anxiety, bipolar disorder, depression, hopeless, panic disorder, schizophrenia, sleepless, suicidal, others All Other Systems: Reviewed and Negative Physical Exam General Appearance: Moderate Distress, Thin HEENT: Normal ENT Inspection, Pharynx Normal, TMs Normal Neck: Full Range of Motion, Non-Tender, Normal, Normal Inspection Respiratory: Chest Non-Tender, Lungs Clear, No Accessory Muscle Use, No Respiratory Distress, Normal Breath Sounds Cardiovascular: No Edema, No JVD, No Murmur, No Gallop, Normal Peripheral Pul ses, Regular Rate/Rhythm Breast Exam: Deferred Gastrointestinal: No Organomegaly, Non Tender, No Pulsatile Mass, Normal Bowel Sounds, Soft Genitalia: Deferred Pelvic: Deferred Rectal: Deferred Extremities: No calf tenderness, Normal capillary refill, No pedal edema Musculoskeletal : Apperance: Normal Neurologic: Alert, dry wall plasterer II-XII nml as Tested, Motor Weakness, Normal Affect, Normal Mood, No Sensory Deficits Cerebellar Function: Normal Reflexes: Normal Skin: Dry, Pallor, Warm Lymphatic: No Adenopathy Was a procedure done? Was a procedure done?: No EKG EKG : Pulse Rate (adult): 106 [place]: Normal Cardiac Rhythm: ST Block: None Hypertrophy: None ST: Normal Differential Dx Considerations may include: Generalized weakness, electrolyte imbalance, dehydration X-Ray, Labs, Meds, VS Vital Signs Date Time Temp Pulse Resp B/P (MAP) Pulse Ox O2 Delivery O2 Flow Rate FiO2 12/09/24 17:27 106 12/09/24 17:25 102.5 110 15 108/77 100 102.5 12/09/24 17:17 106 Lab Test 12/09/24 17:29 Range/Units White Blood Count 5.9 4.4-10.8 10^3/uL Red Blood Count 3.28 L 4.5-5.90 10^6/uL Hemoglobin 8.9 L 13.5-17.5 g/dL Hematocrit 28.0 L 41.0-53.0 % Mean Corpuscular Volume 85.2 80.0-100.0 fL Mean Corpuscular Hemoglobin 27.2 L 28.0-32.0 pg Mean Corpuscular Hemoglobin Concent 32.0 32.0-36.0 g/dL Red Cell Distribution Width 17.8 H 11.8-14.3 % Platelet Count 552 H 140-450 10^3/uL Mean Platelet Volume 7.3 6.9-10.8 fL Neutrophils (%) (Auto) 71.6 37.0-80.0 % Lymphocytes (%) (Auto) 15.0 10.0-50.0 % Monocytes (%) (Auto) 12.4 H 0.0-12.0 % Eosinophils (%) (Auto) 0.8 0.0-7.0 % Basophils (%) (Auto) 0.2 0.0-2.0 % Neutrophils # (Auto) 4.2 1.6-8.6 10 ^3/uL Lymphocytes # (Auto) 0.9 0.4-5.4 10 ^3/uL Monocytes # (Auto) 0.7 0-1.3 10 ^3/uL Eosinophils # (Auto) 0 0-0.8 10 ^3/uL Basophils # (Auto) 0 0-0.2 10 ^3/uL Nucleated Red Blood Cells 0.3 % Sodium Level 138 136-145 mmol/L Potassium Level 3.7 3.5-5.1 mmol/L Chloride Level 103 98-107 mmol/L Carbon Dioxide Level 23 20-31 mmol/L Anion Gap 12 5-15 Blood Urea Nitrogen 8 L 9-23 mg/dL Creatinine 1.09 0.700-1.30 mg/dL Glomerular Filtration Rate Calc 87 >90 mL/min BUN/Creatinine Ratio 7.3 L 10.0-20.0 Serum Glucose 77 74-106 mg/dL Lactic Acid Level 2.8 *H 0.4-2.0 mmol/L Calcium Level 8.7 8.7-10.4 mg/dL Total Bilirubin 0.2 0.2-1.0 mg/dL Aspartate Amino Transferase (AST) 20 13-40 U/L Alanine Aminotransferase (ALT) 11 7-40 U/L Alkaline Phosphatase 69 46-116 U/L Total Protein 8.6 H 5.7-8.2 g/dL Albumin 3.9 3.2-4.8 g/dL Chest XR indicates: No pulmonary airspace consolidation. The patient's CBC shows anemia with a hemoglobin of 8.9 and hematocrit of 28 The platelets counts is 552 The chemistry panel is within normal limits except for an elevated lactic acid of 2.8 Blood cultures x2 were drawn. The CAT scan of the abdomen and pelvis with IV contrast is pending This will be followed by the hospitalist. We feel that the patient should be admitted with failure to thrive. The chest x-ray is negative The patient has been hydrated per sepsis protocol secondary to the fever and tachycardia The patient was started on vancomycin as well as Rocephin The patient is being admitted Images Reviewed?: Images reviewed and evaluated by me Time of 1ST Reevaluation: 19:56 Reevaluation 1ST: Unchanged Patient Education/Counseling: Diagnosis, Treatment, Prognosis Family Education/Counseling: No Family Present SEPSIS Sepsis Screen Physician Orders Chest Portable (12/09/24 17:07) Urinalysis (12/09/24 17:07) Blood Pressure (12/09/24 17:07) Pulse Oximetry (12/09/24 17:07) Blood Culture (12/09/24 17:07) Ct Ab Pel With Iv Con Only (12/09/24 17:15) Heplock Iv (12/09/24 17:15) Vancomycin 1gm/250ml Kit (12/09/24 20:00) Ceftriaxone 1gm/50ml (Rocephin) (12/09/24 20:00) Vital Signs Date Time Temp Pulse Resp B/P (MAP) Pulse Ox O2 Delivery O2 Flow Rate FiO2 12/09/24 17:27 106 12/09/24 17:25 102.5 110 15 108/77 100 102.5 12/09/24 17:17 106 Laboratory Tests Test 12/09/24 17:29 Lactic Acid Level 2.8 mmol/L (0.4-2.0) *H White Blood Count 5.9 10^3/uL (4.4-10.8) Departure 1 Departure Time of Disposition: 19:56 Impression: Primary Impression: Sepsis Qualified Codes: A41.9 - Sepsis, unspecified organism Additional Impression: Failure to thrive Qualified Codes: R62.7 - Adult failure to thrive Disposition: ADMITTED INPATIENT Admit to: Med Surg Condition: Fair e-Prescriptions No Active Prescriptions or Reported Meds Critical Care Note Critical Care Time?: Yes (45 min-critical care time only) Stability Stability form required: Yes Unstable for transfer: ED Physician Assesment (Clinical assesment) Heart Score Heart Score: Heart Score Response (Comments) Value History N/A 0 EKG N/A 0 Age N/A 0 Risk Factors N/A 0 Troponin N/A 0 Total 0 I personally scribed for VIKAS CUEVA MD ([email or web address]) on 12/09/24 at 17:24. Electronically submitted by Sandeep Charles ([email or web address]). I personally scribed for VIKAS CUEVA MD ([email or web address]) on 12/09/24 at 17:27. Electronically submitted by Sandeep Charles ([email or web address]). I personally scribed for VIKAS CUEVA MD ([email or web address]) on 12/09/24 at 18:37. Electronically submitted by Sandeep Charles ([email or web address]). VIKAS CUEVA MD Dec 09, 2024 17:24
[2024-12-09 17:25] VITALS: BP 108/77; RESP 15; TEMP 102.5; O2SAT 100
[2024-12-09 17:27] VITALS: PULSE 106
--- NOTE | 2024-12-09 17:47 | DVH ---
CHEST RADIOGRAPH Indication: GENERALIZED WEAKNESS Technique: XY CHEST PORTABLE Comparison: None FINDINGS: The cardiac silhouette is unremarkable. The lungs demonstrate no pulmonary airspace consolidation. Th e pulmonary vasculature is unremarkable. There is no pleural effusion. There is no pneumothorax. IMPRESSION: No pulmonary airspace consolidation.
[2024-12-09 18:02] LABS: Hematocrit 28.0 % (41.0-53.0); Hemoglobin 8.9 g/dL (13.5-17.5); Mean Corpuscular Hemoglobin 27.2 pg (28.0-32.0); Mean Corpuscular Volume 85.2 fL (80.0-100.0); Nucleated Red Blood Cells % 0.3 %
[2024-12-09 18:11] LABS: Alanine Aminotransferase 11 U/L (7-40); Albumin 3.9 g/dL (3.2-4.8); Alkaline Phosphatase 69 U/L (46-116); Anion Gap 12 (5-15); BUN/Creatinine Ratio 7.3 (10.0-20.0); Carbon Dioxide 23 mmol/L (20-31); Chloride 103 mmol/L (98-107); Glucose 77 mg/dL (74-106); Potassium 3.7 mmol/L (3.5-5.1); Sodium 138 mmol/L (136-145)
[2024-12-09 18:12] LABS: Blood Urea Nitrogen 8 mg/dL (9-23); Calcium 8.7 mg/dL (8.7-10.4)
[2024-12-09 18:13] LABS: Bilirubin, Total 0.2 mg/dL (0.2-1.0); Total Protein 8.6 g/dL (5.7-8.2)
[2024-12-09 18:16] LABS: Lactic Acid w/Reflex 2.8 mmol/L (0.4-2.0)
--- NOTE | 2024-12-09 18:45 | ECG ---
[facility] Test Date: 2024-12-09 Test Time: 17:15:54 Pat Name: SEAN JACK Department: [facility] ED Patient ID: [facility]-[id number] Room: Gender: M Oral Hygienist: ALBERT : 1985 Requested By: VIKAS CUEVA Order Number: [id number] Reading MD: Wade Nelson Measurements Intervals [place] Rate: 106 P: 52 PA: 147 QRS: 5 QRSD: 73 T: 53 QT: 307 QTc: 408 Interpretive Statements Sinus tachycardia Electronically Signed On 12-11-2024 18:45:28 PDT by Wade Nelson Please click the below link to view image of tracing.
[2024-12-09] MEDS ORDERED: VANCOMYCIN 1GM/250ML KIT 250 ML IV ONE (20:00)
== END 2024-12-09 20:40 | disposition left against medical advice (07) ==
LOC: ER 16:57 → EDBD 16:57 → ER 20:40
DX: A41.9 Sepsis, unspecified organism (principal); R62.7 Adult failure to thrive; F17.210 Nicotine dependence, cigarettes, uncomplicated; F19.90 Other psychoactive substance use, unspecified, uncomplicated; F20.9 Schizophrenia, unspecified; Z91.0120 Allergy to eggs, unspecified; Z91.0110 Allergy to milk products, unspecified; Z87.11 Personal history of peptic ulcer disease; Z88.6 Allergy status to analgesic agent
CPT/HCPCS: 36415; 71045; 80053; 83605; 85025; 87040; 93005; 99291